=== PATIENT | male | born 1980 ===

== ENCOUNTER → 2018-02-06 | Outpatient (CLI) | payer MEDICAID | LOC: FIMAGING 17:12 | PROVIDERS: ATTEND Registered Nurse | DX: M85.871 Other specified disorders of bone density and structure, right ankle and foot (principal) ==

== ENCOUNTER 2018-08-22 21:41 | Emergency (ER) | payer MEDICAID, OTHER ==
[2018-08-22] MEDS ORDERED: LIDOCAINE HCL 4% TOPICAL SOLN 50ML ONE (22:09)
[2018-08-22] MEDS ORDERED: OXYMETAZOLINE 30 ML NASAL SPRAY ONE (22:09)
[2018-08-22] MEDS ORDERED: SILVER NITRATE APPLICATOR 1 APPL TP ONE (22:09)
--- NOTE | 2018-08-22 22:17 | EDPHY ---
H & P Stated Complaint: epistaxis+nausea, recent nasal fx, blew nose at 1930 Time Seen by Provider: 08/22/18 22:00 HPI/ROS: Chief Complaint: Nosebleed HPI: 38-year-old male who was recently admitted after seizure and sustained a nasal fracture and a cerebral contusion. Patient started having a nosebleed from his left nostril approximately 30 min ago. He has been applying pressure but is not stopping. Has had some mild nausea. Denies any lightheadedness or fainting. No chest pain or shortness of breath. No cough. He has not had any further seizures since his admission. He has been taking his medication. He is not currently on any blood thinning medications. ROS: 10 systems were reviewed and were negative except those elements noted in the HPI. PMH: Chronic alcohol abuse, cerebral contusion, nasal fracture, seizure Social History: No smoking, history of heavy alcohol Family History: non-contributory Physical Exam: Gen: Awake, Alert, No Distress HEENT: Nose: Moderate active bleeding from his left nare anteriorly Eyes: PERRLA, EOMI Mouth: Moist mucosa Neck: Supple, no JVD Chest: nontender, lungs clear to auscultation Heart: S1, S2 normal, no murmur Abd: Soft, non-tender, no guarding Back: no CVA tenderness, no midline tenderness Ext: no edema, non-tender Skin: no rash Neuro: CN II-XII intact, Sensation grossly intact, Strength 5/5 in bilateral upper and lower extremities - Personal History Current Tetanus/Diphtheria Vaccine: Yes Current Tetanus Diphtheria and Acellular Pertussis (TDAP): Yes - Medical/Surgical History Hx Asthma: No Hx Chronic Respiratory Disease: No Hx Diabetes: No Hx Cardiac Disease: No Hx Renal Disease: No Hx Cirrhosis: No Hx Alcoholism: No Other PMH: ETOH - Social History Smoking Status: Current every day smoker Constitutional: Initial Vital Signs Temperature (C) 36.8 C 08/22/18 21:42 Heart Rate 97 08/22/18 21:42 Respiratory Rate 20 08/22/18 21:42 Blood Pressure 119/83 H 08/22/18 21:42 O2 Sat (%) 95 08/22/18 21:42 O2 Delivery Mode Room Air Allergies/Adverse Reactions: No Known Allergies Allergy (Verified 08/22/18 21:42) Home Medications: Medication Instructions Recorded levETIRAcetam [Keppra] 750 mg PO BID #60 tablet 08/18/18 Medical Decision Making Procedures: Procedure: Epistaxis control. After verbal consent was obtained, the patient was anesthetized with lidocaine 4 % and Lico-Synephrine. The anterior epistaxis was identified. The patient was treated initially with cautery which was unsuccessful. I then placed a Merocel sponge wrapped in the Surgicel.. Following the procedure the patient was re- examined and the bleeding was well controlled. The patient tolerated the procedure well. The procedure was performed by myself. ED Course/Re-evaluation: 38-year-old male with nasal fracture now new epistaxis. Bleeding has been controlled with a rhino rocket after other measures have failed.. Plan will be to discharge with follow-up with ear nose and throat next 1-2 days for further evaluation, return for any concerns. - Data Points Medications Given: Discontinued Medications Oxycodone/Acetaminophen (Percocet 5/325) 2 tab PO EDNOW ONE Stop: 08/23/18 00:39 Last Admin: 08/23/18 00:45 Dose: 2 tab Departure - Departure Disposition: Home, Routine, Self-Care Clinical Impression: Acute anterior epistaxis, Nasal fracture Condition: Fair Instructions: Nasal Fracture (ED), Nosebleed (ED), Oxycodone/Acetaminophen (By mouth) Additional Instructions: Follow up with Ear Nose and Throat doctor today, call for appointment after 8: 30. Leave the nasal packing in place until your seen by Ear Nose and Throat. Return to the emergency department for further bleeding, fainting, uncontrolled vomiting, or any other concerns. Referrals: Rika Ma MD [Medical Doctor] - As per Instructions Stand Alone Forms: Work Excuse
[2018-08-22] MEDS ORDERED: TRANEXAMIC ACID 1,000 MG/10 ML VIAL ONE (22:39)
[2018-08-23] MEDS ORDERED: OXYCODONE/APAP 5/325 TAB PO ONE (00:38)
[2018-08-23] MEDS ORDERED: OXYCODONE/APAP 5/325MG PREPACK#4 BTL TAKEHOME ONE (01:57)
[2018-08-23 03:12] VITALS: BP 130/87
== END 2018-08-23 03:15 | disposition home or self-care (01) ==
PROC: 2Y41X5Z Packing of Nasal Region using Packing Material (ICD-10-PCS; principal; 2018-08-22)
DX: R04.0 Epistaxis (principal); F17.200 Nicotine dependence, unspecified, uncomplicated; F10.10 Alcohol abuse, uncomplicated